=== PATIENT | female | born 1990 | race African-American/Black ===

== ENCOUNTER 2025-01-25 11:20 | Emergency (ER) | payer MEDICAID ==
[~2025-01-25] VITALS: Ht 154.9 cm; Wt 68.0 kg
[2025-01-25 11:58] VITALS: PULSE 99; RESP 16; TEMP 99.6; O2SAT 100
[2025-01-25] MEDS: FAMOTIDINE 20 MG TAB PO ONE (13:43)
[2025-01-25] MEDS: KETOROLAC TROMETHAMINE 30 MG/ML VIAL IV STA (13:44)
[2025-01-25 14:31] LABS: CALCIUM 8.9 mg/dL (8.4-10.2); CREATININE, SERUM 0.92 mg/dL (0.57-1.11)
== END 2025-01-25 15:31 | disposition home or self-care (01) ==
LOC: ER 12:58
DX: R50.9 Fever, unspecified (principal); R51.9 Headache, unspecified; M79.18 Myalgia, other site; K21.9 Gastro-esophageal reflux disease without esophagitis; E88.09 Other disorders of plasma-protein metabolism, not elsewhere classified
CPT/HCPCS: 36415; 80048; 83735; 99282; J1885

== ENCOUNTER 2025-03-12 15:08 | Emergency (ER) | payer MEDICAID ==
[~2025-03-12] VITALS: Ht 154.9 cm; Wt 66.7 kg
[~2025-03-12 15:08] MED LIST: ENULOSE10 GM/15 M PO
[2025-03-12 15:39] VITALS: PULSE 83; RESP 19; TEMP 98.7; O2SAT 100
[2025-03-12 15:56] LABS: BASOPHILS % 0.4 % (0.0-1.0); EOSINOPHILS % 0.6 % (0.0-6.0); HEMATOCRIT 41.2 % (34.2-44.1); HEMOGLOBIN 13.9 g/dL (12.0-16.0); LYMPHOCYTES # (AUTO) 1.5 (1.0-3.2); LYMPHOCYTES % 29.7 % (18.0-39.1); MEAN CORPUSCULAR HEMOGLOBIN 30.9 pg (28-32); MEAN CORPUSCULAR HGB CONC 33.7 g/dL (31-35); MEAN CORPUSCULAR VOLUME 91.6 fL (81-99); MONOCYTES # (AUTO) 0.5 (0.2-0.8); MONOCYTES % 9.1 % (4.4-11.3); PLATELET COUNT 262 x10e3/uL (140-360); RED CELL DISTRIBUTION WIDTH 12.6 % (11.7-14.4); WHITE BLOOD COUNT 5.05 x10e3/uL (4.8-10.8)
[2025-03-12 17:36] LABS: ALBUMIN/GLOBULIN RATIO 1.2 (0.8-2.0); BILIRUBIN,TOTAL 0.3 mg/dL (0.2-1.2); CALCIUM 9.2 mg/dL (8.4-10.2); CREATININE, SERUM 0.89 mg/dL (0.57-1.11); TOTAL PROTEIN 7.4 g/dL (6.5-8.1)
[2025-03-12] MEDS: ACETAMINOPHEN 325 MG TAB PO ONE (18:07)
== END 2025-03-12 18:18 | disposition home or self-care (01) ==
LOC: ER 15:40
DX: J02.9 Acute pharyngitis, unspecified (principal); M89.8X8 Other specified disorders of bone, other site; K21.9 Gastro-esophageal reflux disease without esophagitis; F41.9 Anxiety disorder, unspecified; F32.A Depression, unspecified; Z87.19 Personal history of other diseases of the digestive system
CPT/HCPCS: 36415; 80053; 83518; 85025; 87070; 99283

== ENCOUNTER 2025-06-10 07:15 | Emergency (ER) | payer MEDICAID ==
[~2025-06-10] VITALS: Ht 154.9 cm; Wt 66.7 kg
[2025-06-10 07:22] VITALS: PULSE 74; RESP 14; TEMP 98.2; O2SAT 100
[2025-06-10] MEDS ORDERED: SODIUM CHLORIDE FLUSH 10 ML SYR IV PRN (07:30)
[2025-06-10] MEDS ORDERED: CABERGOLINE0.5 MG PO (07:45)
[2025-06-10] MEDS ORDERED: QUETIAPINE FUMA50 MG PO (07:45)
[2025-06-10 07:51] LABS: BASOPHILS % 0.5 % (0.0-1.0); EOSINOPHILS % 1.5 % (0.0-6.0); LYMPHOCYTES % 42.5 % (18.0-39.1); MONOCYTES % 8.9 % (4.4-11.3); NEUTROPHILS % 46.3 % (38.7-80.0); RED CELL DISTRIBUTION WIDTH 12.8 % (11.7-14.4)
[2025-06-10 08:22] LABS: PHOSPHORUS 3.4 MG/DL (2.3-4.7)
[2025-06-10 08:25] LABS: EST GLOMERULAR FILTRATION RATE 73.0 ML/MIN (>=60)
[2025-06-10] MEDS: KETOROLAC TROMETHAMINE 30 MG/ML VIAL IV STA (09:12)
== END 2025-06-10 10:46 | disposition home or self-care (01) ==
LOC: ER 07:18
DX: R06.02 Shortness of breath (principal); R07.89 Other chest pain; R20.2 Paresthesia of skin; E11.9 Type 2 diabetes mellitus without complications; E78.5 Hyperlipidemia, unspecified; K21.9 Gastro-esophageal reflux disease without esophagitis; K76.9 Liver disease, unspecified; M54.9 Dorsalgia, unspecified; G89.29 Other chronic pain; F41.9 Anxiety disorder, unspecified; F32.A Depression, unspecified; Z87.442 Personal history of urinary calculi
CPT/HCPCS: 36415; 71046; 80053; 83735; 84100; 84484; 85025; 93005; 99284; J1885